=== PATIENT | male | born 1950 | race Caucasian/White ===

== ENCOUNTER 2023-06-19 13:37 | Emergency (ER) | payer SELFPAY ==
[~2023-06-19] VITALS: Ht 165.1 cm; Wt 85.0 kg
[2023-06-19 14:11] VITALS: BP 129/74; PULSE 88; RESP 16; TEMP 98.6; O2SAT 100
== END 2023-06-19 16:16 | disposition left against medical advice (07) ==
LOC: ER 13:37
DX: M79.671 Pain in right foot (principal); Z53.21 Procedure and treatment not carried out due to patient leaving prior to being seen by health care provider
CPT/HCPCS: 99281